=== PATIENT | male | born 1945 | race Caucasian/White ===

== ENCOUNTER → 2020-05-31 | Outpatient (CLI) | payer OTHER ==
[~2020-05-31] MED LIST: Lipofen150 MG PO; ZESTORETIC 20-121 EA PO
== END | disposition home or self-care (01) ==
LOC: PLD 12:01 → LAB SHORT 12:01
DX: D48.5 Neoplasm of uncertain behavior of skin (principal)
CPT/HCPCS: 88305

== ENCOUNTER → 2021-01-22 | Outpatient (CLI) | payer OTHER ==
[2021-01-22 11:33] LABS: BASOPHILS ABSOLUTE AUTO 0.06 K/mm3 (0.00-0.23); BASOPHILS PERCENT AUTO 1 % (0-2); EOSINOPHILS PERCENT AUTO 6 % (0-6); Hematocrit 40.7 % (37.0-53.0); Hemoglobin 13.9 g/dL (13.5-17.5); IMMATURE GRAN ABSOLUTE AUTO 0.03 K/mm3 (0.00-0.10); IMMATURE GRAN PERCENT AUTO 0 % (0-1); LYMPHOCYTES ABSOLUTE AUTO 1.26 K/mm3 (0.84-5.20); LYMPHOCYTES PERCENT AUTO 19 % (21-46); MONOCYTES ABSOLUTE AUTO 0.97 K/mm3 (0.16-1.47); MONOCYTES PERCENT AUTO 14 % (4-13); Mean Corpuscular HGB 32.9 pg (26.0-34.0); Mean Corpuscular HGB Conc 34.2 g/dL (31.5-36.5); Mean Corpuscular Volume 96 fL (80-100); Mean Platelet Volume 9.1 fL (9.1-12.4); NEUTROPHILS ABSOLUTE AUTO 4.09 K/mm3 (1.96-9.15); NEUTROPHILS PERCENT AUTO 60 % (41-73); Platelet Count 210 K/mm3 (150-400); RDW Coefficient Variation 12.2 % (11.7-14.2); RDW Standard Deviation 43.3 fL (35.1-46.3); Red Blood Cell Count 4.22 M/mm3 (4.30-5.90); White Blood Cell Count 6.81 K/mm3 (4.00-11.30)
[2021-01-22 11:47] LABS: Alanine Aminotransfer (ALT/SGP 32 U/L (12-78); Albumin, Blood 3.6 g/dL (3.4-5.0); Albumin/Globulin Ratio 0.9 (0.8-1.8); Alk Phos 44 U/L (40-126); Anion Gap 12 mmol/L (6-16); Aspartate Aminotrans (AST/SGOT 27 U/L (12-37); Bilirubin, Total 0.5 mg/dL (0.1-1.0); Blood Urea Nitrogen 16 mg/dL (8-24); CO2, Blood 23 mmol/L (21-32); Calcium, Blood 9.2 mg/dL (8.5-10.1); Chloride, Blood 98 mmol/L (98-108); Creatinine, Blood 1.14 mg/dL (0.60-1.20); Globulin, Blood 3.8 g/dL (2.2-4.0); Glomerular Filtration Rate >60 (60-); Glucose, Blood 99 mg/dL (70-99); Potassium, Blood 4.4 mmol/L (3.5-5.5); Sodium, Blood 133 mmol/L (136-145); Total Protein, Blood 7.4 g/dL (6.4-8.2)
== END | disposition home or self-care (01) ==
LOC: LAB SHORT 11:29 → LAB 11:29
PROVIDERS: Physician Assistant
DX: R53.83 Other fatigue (principal); R23.8 Other skin changes
CPT/HCPCS: 80053; 85025; 85379; 85651

== ENCOUNTER 2022-04-07 06:39 | Emergency (ER) | payer OTHER ==
[~2022-04-07] VITALS: Ht 182.9 cm; Wt 83.9 kg
[2022-04-07] MEDS ORDERED: ELIQUIS5 M2 PO (06:52)
[2022-04-07] MEDS ORDERED: LISI20 PO (06:52)
[2022-04-07] MEDS ORDERED: CYCL10 PO (07:13)
[2022-04-07] MEDS ORDERED: TRAM50 PO (07:13)
== END 2022-04-07 09:09 | disposition home or self-care (01) ==
LOC: ER 06:39
DX: M16.11 Unilateral primary osteoarthritis, right hip (principal); I10 Essential (primary) hypertension; Z87.891 Personal history of nicotine dependence; Z88.8 Allergy status to other drugs, medicaments and biological substances
CPT/HCPCS: 73502; A9270; J1100; J2405; J3010

== ENCOUNTER 2022-08-27 06:52 | Day surgery (SDC) | payer OTHER ==
[~2022-08-27] VITALS: Ht 182.9 cm; Wt 76.6 kg
[~2022-08-27 06:52] MED LIST changes: +COQ1050 MG PO; +CYCL10 PO; +EASY IRON PO; +ELIQUIS5 M2 PO; +FISH OIL 1,2001 EAC7 PO; +GARLIC200 MG PO; +GENICIN500 M2 PO; +LISI20 PO; +MULVITA PO; +SYMBICORT 160-4.6 GM INH; +TRAM50 PO; +Triamcinolone A15 G3 TOP
--- NOTE | 2022-08-27 08:11 | NUR ---
History, Chart, Medications and Allergies reviewed before start of procedure. Patient confirms NPO status and agrees with scheduled surgery. Lungs clear T/O to Auscultation.
--- NOTE | 2022-08-27 09:25 | NUR ---
NOZIN NASAL RETURNED TELEPHONE EQUIPMENT APPRAISER X3 AMPULES USED TO CLEAN NARES BILAT PER DR URIAS' ORDER. KNEE HIGH JAS HOSE AND CALF PAS APPLIED TO BLE.
--- NOTE | 2022-08-27 11:52 | NUR ---
08/27/22 1152 Nayan Lima SMALL ABRASION ON RIGHT HIP, AWARE.
--- NOTE | 2022-08-27 19:15 | NUR ---
SHIFT SUMMARY PATIENT NEW ADMIT TO UNIT FROM PACU POD 0 R YVAN. ALERT AND ORIENTED, PLEASANT AND COOPERATIVE. OCCASIONALLY NAUSEATED THROUGH AFTERNOON, MEDICATED WITH ZOFRAN ONCE. TOLERATING SIPS OF WATER. SBA WITH FWW AND GAIT BELT UP TO RECLINER. NO VOID AT THIS TIME. PAIN CONTROLLED WITH SCHEDULED PAIN MEDS, NO NARCOTICS AT THIS TIME. AQUACEL TO RIGHT HIP C/D/I. SPOUSE ATTENTIVE AT BEDSIDE IN AFTERNOON. PLAN FOR DISCHARGE HOME TOMORROW 08/28/22 AFTER CLEARING PHYSICAL THERAPY.
--- NOTE | 2022-08-28 04:06 | NUR ---
POD1 FOR A RIGHT YVAN. SENSATION AND CIRCULATION REMAIN IN TACT IN THE RLE. PT STATES HE HAS VERY MINIMAL DISCOMFORT IN HIS HIP, HE HAS ONLY BEEN TAKING SCHEDULED PAIN MEDICATION. CRYO HAS REMAINED IN PLACE. THE PT HAS AMBULATED TWICE T/O THE SHIFT, TOLLERATED WELL. THE PT HAS ONLY VOIDED ONCE T/O THE SHIFT, URINE NOTED TO BE DARK ZELDA. PT STATES HE FEELS "DRY". ENCOURAGING PO INTAKE AND HAS HAD MAINTENENCE FLUIDS RUNNING T/O THE NIGHT. AWAITING PT CONSULT THIS AM TO ASSESS IF DISCHARGE IS SAFE. PT IS RESTING PEACEFULLY, CALL LIGHT IN REACH.
[2022-08-28 04:27] LABS: BASOPHILS ABSOLUTE AUTO 0.03 K/mm3 (0.00-0.23); BASOPHILS PERCENT AUTO 0 % (0-2); EOSINOPHILS PERCENT AUTO 3 % (0-6); Hematocrit 29.8 % (37.0-53.0); Hemoglobin 10.3 g/dL (13.5-17.5); IMMATURE GRAN ABSOLUTE AUTO 0.08 K/mm3 (0.00-0.10); IMMATURE GRAN PERCENT AUTO 1 % (0-1); LYMPHOCYTES PERCENT AUTO 12 % (21-46); MONOCYTES PERCENT AUTO 11 % (4-13); Mean Corpuscular HGB 32.8 pg (26.0-34.0); Mean Corpuscular HGB Conc 34.6 g/dL (31.5-36.5); Mean Corpuscular Volume 95 fL (80-100); Mean Platelet Volume 9.3 fL (9.1-12.4); NEUTROPHILS PERCENT AUTO 73 % (41-73); Platelet Count 192 K/mm3 (150-400); RDW Coefficient Variation 12.9 % (11.7-14.2); RDW Standard Deviation 45.1 fL (35.1-46.3); Red Blood Cell Count 3.14 M/mm3 (4.30-5.90); White Blood Cell Count 10.71 K/mm3 (4.00-11.30)
[2022-08-28 04:44] LABS: Bun/Creatinine Ratio 15.4 (12.0-20.0); Calcium, Blood 8.2 mg/dL (8.5-10.1); Creatinine, Blood 1.23 mg/dL (0.60-1.20); Potassium, Blood 4.5 mmol/L (3.5-5.5)
[2022-08-28] MEDS ORDERED: Percocet 5-3251 EACH PO (08:00)
--- NOTE | 2022-08-28 10:57 | NUR ---
DISCHARGE PT HAS CLEARED THERAPY. PAIN WELL CONTROLLED PER EMAR. EATING, DRINKING, & VOIDING WELL. AMBULATING WELL W/ FWW & GB. DISCUSSED DISCHARGE INSTRUCTIONS & SENT WITH PATIENT. ALSO SENT DRESSINGS, SCRIPTS, & POLAR PACK WITH PT. ESCORTED OUT VIA W/C.
== END 2022-08-28 10:26 | disposition home or self-care (01) ==
LOC: ORSCMMR 06:52 → SURS 14:40 → ORSCMMR 08-28 10:26 → SURS 08-28 10:26
PROVIDERS: Orthopaedic Surgery
PROC: 0SR90JZ Replacement of Right Hip Joint with Synthetic Substitute, Open Approach (ICD-10-PCS; principal; 2022-08-27 12:00)
DX: M16.11 Unilateral primary osteoarthritis, right hip (principal); I10 Essential (primary) hypertension; I48.91 Unspecified atrial fibrillation; Z79.01 Long term (current) use of anticoagulants; Z87.891 Personal history of nicotine dependence; Z86.718 Personal history of other venous thrombosis and embolism; Z79.899 Other long term (current) drug therapy
CPT/HCPCS: 36415; 72170; 80048; 85025; 97110; 97116; 97161; 97530; A9270; C1776; J0171; J0690; J0735; J1885; J2370; J2405; J2704; J2795; J3010; J7120

== ENCOUNTER → 2023-06-24 | Outpatient (CLI) | payer OTHER ==
[~2023-06-24] MED LIST changes: +Percocet 5-3251 EACH PO
[2023-06-24 12:34] LABS: Hematocrit 38.4 % (37.0-53.0); Hemoglobin 13.3 g/dL (13.5-17.5); Mean Corpuscular HGB 32.2 pg (26.0-34.0); Mean Corpuscular HGB Conc 34.6 g/dL (31.5-36.5); Mean Corpuscular Volume 93 fL (80-100); Mean Platelet Volume 9.8 fL (9.1-12.4); Platelet Count 260 K/mm3 (150-400); RDW Coefficient Variation 12.9 % (11.7-14.2); RDW Standard Deviation 44.1 fL (35.1-46.3); Red Blood Cell Count 4.13 M/mm3 (4.30-5.90); White Blood Cell Count 7.72 K/mm3 (4.00-11.30)
[2023-06-24 12:52] LABS: Alanine Aminotransfer (ALT/SGP 27 U/L (12-78); Albumin, Blood 3.8 g/dL (3.4-5.0); Albumin/Globulin Ratio 1.3 (0.8-1.8); Alk Phos 50 U/L (50-136); Anion Gap 5 mmol/L (6-16); Aspartate Aminotrans (AST/SGOT 19 U/L (12-37); Bilirubin, Total 0.6 mg/dL (0.1-1.0); Blood Urea Nitrogen 11 mg/dL (8-24); Bun/Creatinine Ratio 11.6 (12.0-20.0); CHOL/HDL RATIO 3.4; CO2, Blood 27 mmol/L (21-32); Calcium, Blood 9.1 mg/dL (8.5-10.1); Chloride, Blood 101 mmol/L (98-108); Cholesterol 210 mg/dL (50-200); Creatinine, Blood 0.95 mg/dL (0.60-1.20); Glomerular Filtration Rate 82 (60-); Glucose, Blood 109 mg/dL (70-99); HDL Cholesterol 61 mg/dL (>39); LDL/HDL RATIO 2.2; Low Density Lipoprotein Chol 136 mg/dL (0-110); Potassium, Blood 4.5 mmol/L (3.5-5.5); Sodium, Blood 133 mmol/L (136-145); Total Protein, Blood 6.8 g/dL (6.4-8.2); Triglycerides 65 mg/dL (30-160); Very Low Density Lipoprot Chol 13 mg/dL (6-32)
== END ==
LOC: LAB 12:22 → LAB SHORT 12:22
PROVIDERS: Family Medicine
DX: E78.5 Hyperlipidemia, unspecified (principal)
CPT/HCPCS: 80053; 80061; 85027

== ENCOUNTER → 2025-01-14 | Outpatient (CLI) | payer OTHER | LOC: LAB 10:40 → LAB SHORT 10:40 | DX: D17.21 Benign lipomatous neoplasm of skin and subcutaneous tissue of right arm (principal) | CPT/HCPCS: 87070; 87077; 87186; 87205 ==

== ENCOUNTER → 2025-06-01 | Outpatient (CLI) | payer OTHER ==
[2025-06-01 15:06] LABS: Stool Occult Bld Immuno 1 Negative (NEGATIVE)
== END ==
LOC: LAB SHORT 10:27 → LAB 10:27
PROVIDERS: Family Medicine
DX: Z12.11 Encounter for screening for malignant neoplasm of colon (principal)
CPT/HCPCS: G0328